=== PATIENT | female | born 2000 | race Caucasian/White ===

== ENCOUNTER 2020-07-02 11:55 | Emergency (ER) | payer BC ==
[~2020-07-02] VITALS: Ht 154.9 cm; Wt 64.3 kg
[2020-07-02 11:55] VITALS: BP 103/66
[2020-07-02] MEDS ORDERED: CETI10TA74 PO (12:27)
--- NOTE | 2020-07-02 12:28 | PHYS DOC ---
Past History Past Medical History: No Pertinent History Past Surgical History: No Surgical History Alcohol Use: None Adult General Chief Complaint Chief Complaint: SORE THROAT HPI HPI Patient is a healthy 19-year-old female who presents for sore throat. She was confirmed positive for Covid yesterday, is currently on day 6 of symptoms. 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 She is here today complaining of sore throat. She has been taking Tylenol only for this. She is able to swallow, is tolerating p.o. intake fine but admits having a dry scratchy throat with a nonproductive cough. Review of Systems Review of Systems Fourteen body systems of review of systems have been reviewed. See HPI for pertinent positives and negative responses, other [place] all other systems are negative, non-pertinent or non-contributory Current Medications Current Medications Current Medications Medications (Trade) Dose Ordered Sig/Esteban Start Time Stop Time Status Last Admin Dose Admin Cetirizine HCl (ZyrTEC ORAL SOLN) 10 mg DAILY 07/03/20 09:00 UNV Allergies Allergies Allergies Coded Allergies Type Severity Reaction Last Updated Verified No Known Drug Allergies 07/02/20 No Physical Exam Physical Exam Constitutional: Well developed, well nourished, no acute distress, non-toxic appearance. HENT: Normocephalic, atraumatic, bilateral external ears normal, oropharynx moist, no oral exudates, moderate postnasal drip present, moderately engorged nasal turbinates with clear rhinorrhea present, external nose normal. Eyes: PERRLA, EOMI, conjunctiva normal, no discharge. Neck: Normal range of motion, no tenderness, supple, no stridor. Cardiovascular: Heart rate regular, sinus rhythm, no murmurs rubs or gallops Lungs & Thorax: Bilateral breath sounds clear to auscultation Abdomen: Bowel sounds normal, soft, no tenderness, no masses, no pulsatile ma sses. Nonsurgical abdomen, no peritoneal signs Skin: Warm, dry, no erythema, no rash. Back: No tenderness, no CVA tenderness. Extremities: No tenderness, no cyanosis, no clubbing, ROM intact, no edema. Neurologic: Alert and oriented X 3, grossly normal motor & sensory function, no focal deficits noted. Psychologic: Affect normal, judgement normal, mood normal. Current Patient Data Vital Signs Vital Signs Date Time Temp Pulse Resp B/P (MAP) Pulse Ox O2 Delivery O2 Flow Rate FiO2 07/02/20 11:55 97.7 110 16 103/66 (78) 97 Room Air EKG EKG [] Radiology/Procedures Radiology/Procedures [] Heart Score Risk Factors: Risk Factors: DM, Current or recent (<one month) smoker, HTN, HLP, family history of CAD, obesity. Risk Scores: Risk Factors: DM, Current or recent (<one month) smoker, HTN, HLP, family history of CAD, obesity. Course & Med Decision Making Course & Med Decision Making ABCs unremarkable. Well-appearing patient tolerating p.o. intake. States she is concerned about swallowing a pill, there are no concerning findings on history or physical exam to support her inability to swallow pill. Nonetheless, she tolerated p.o. Zyrtec solution before departure I have no concern for impending airway compromise, no obvious signs or symptoms of oropharyngeal mass and/or abscess. No indication for further intervention and/or work-up in ER setting Patient has good family support. Will be returning home to self quarantine. She is tolerating p.o. intake prior to ER departure. Patient was advised and educated on importance of close outpatient follow-up when appropriate. I advised them to call primary care physician as soon as possible to discuss following up in outpatient setting after ER departure for repeat examination and evaluation. Strict return precautions were discussed at length with good understanding by patient who is able to restate plan and concerning signs or symptoms that should prompt immediate medical attention. All questions and concerns addressed prior to ER departure Dragon Disclaimer Dragon Disclaimer This electronic medical record was generated, in whole or in part, using a voice recognition dictation system. Departure Departure: Impression: Primary Impression: COVID-19 Disposition: 01 DC HOME SELF CARE/HOMELESS Condition: STABLE Referrals: NOHEMI ELISE MD (PCP) Patient Instructions: Viral Syndrome Additional Instructions: Short You were evaluated in the Emergency Department today for a cough. Your evaluation suggests a viral infection such as Coronavirus. It is important that you continue to self isolate and practice good hygiene at home. Please follow up with your primary care physician as discussed. Return to the Emergency Department if you experience worsening cough, fever, shortness of breath, recurrent vomiting, lethargy, or any other concerning symptoms. Thank you for choosing us for your care. Home Care Instructions for Patients with Mild Respiratory Infection Most people with respiratory infections like colds, the flu, and Coronavirus Disease (COVID-19) will have mild illness and can get better with appropriate home care and without the need to see a provider. People who are elderly, , or have a weak immune system, or other medical problem are at higher risk of more serious illness or complications. It is recommended that they carefully monitor their symptoms closely and seek medical care early if their symptoms get worse. Treatment There is no specific treatment for most viruses including those that that cause the common cold and those that cause COVID-19. Sometimes there is treatment for the viruses that cause influenza if given early. Antibiotics treat infections caused by bacteria, but they do not work against viruses.Most people recover on their own from these viruses, including COVID-19. Here are steps that you can take to help you get better: Rest Drink plenty of fluids Take [id number]-[id number] cold and flu medications to reduce fever and pain. Follow the instructions on the package, unless your doctor gave you instructions. Note that these medicines do not ``cure the illness and therefore do not stop you from spreading germs. Children should not be given medication that contains aspirin (acetylsalicylic acid) because it can cause a rare but serious illness called Yonas syndrome. Medicines without aspirin include acetaminophen (Tylenol) and ibuprofen (Advil, Motrin). Children younger than age 2 should not be given any rszc-zky-dntlion cold medications without first speaking with a doctor.Seeking Medical Care You should seek medical care if you are not getting better within a week, or if your symptoms get worse. If you are elderly, , have a weak immune system, or other medical problems, call your doctor right away. It is best to call ahead of time to discuss your symptoms, if possible. This may allow you to receive the advice you need by phone. By avoiding a visit to a healthcare facility, you protect yourself from getting a new infection and protect others from catching an infection from you. If you do visit a healthcare facility, put on a mask to protect other patients and staff. It is recommended that you seek medical care for serious symptoms, such as: People with potentially life-threatening symptoms should call 911. If possible, put on a facemask before emergency medical services arrive. PROTECTING OTHERS Follow the steps below to help prevent the disease from spreading to people in your home and community.Stay home when you are sick Stay home - do not go to work, school, or public areas. Stay home for at least 24 hours after your symptoms have gone away without the use of fever-reducing medicines. If you must leave home while you are sick, try to avoid using public transportation, ride-shares, and taxis. Wear a mask if possible. Separate yourself from other people and animals in your home Stay in a specific room and away from other people in your home as much as possible. Use a separate bathroom, if available. Try to stay at least 6 feet from others. Do not handle pets or other animals while you are sick. Cover your coughs and sneezes Cover your mouth and nose with a tissue when you cough or sneeze. Throw used tissues in a lined trash can; immediately wash your hands. Avoid sharing personal household items Do not share dishes, drinking glasses, cups, eating utensils, towels, or bedding with other people or pets in your home. Wash them thoroughly with soap and water after use. Clean your hands often Wash your hands often with soap and water for at least 20 seconds. If soap and water are not available, clean your hands with an alcohol-based hand assistant press operator that contains at least 60% alcohol, covering all surfaces of your hands and rubbing them together until they feel dry. Use soap and water if your hands are visibly dirty. Clean all ``high-touch surfaces every day High touch surfaces include counters, tabletops, doorknobs, bathroom fixtures, toilets, phones, keyboards, tablets, and bedside tables. Also, clean any surfaces that may have body fluids on them. Use a household cleaning spray or wipe, according to the product label instructions. COVID-19 (Novel Coronavirus) FAQs for Inquiring Patients What do you do if you are worried that you have been exposed to COVID-19 but are without any symptoms? If you develop symptoms that may indicate an infection, contact your physician. These include fever, cough, and shortness of breath. Testing is not available for asymptomatic individuals, regardless of travel history. To reduce the chance of getting sick use general infection prevention measures such as hand washing, covering your mouth and nose when you cough or sneeze and discarding any tissues carefully, and staying home when you are sick.Can exceptions be made for patients who are really worried and want to be tested? Presently testing is available through all local Department of Public Health and Centers for Disease Control and Prevention in addition to numerous Urgent Care facilities and Pharmacies. Only patients who meet the updated COVID-19 PUI definition may be tested. We do not control or set the PUI definition or evaluation criteria. We are unable to provide testing to patients who do not meet the strict criteria. Should patients cancel or postpone an upcoming trip? The decision about travel is personal and should be made in the context of a persons underlying health conditions, reason for travel and necessity of travel. Travel insurance generally does not cover cancellations due to concerns of infectious disease outbreaks. The Center for Disease Control has a section on travel notices. Situations are changing frequently and you should monitor the site for updates. Should situations change rapidly in a foreign country while they are traveling, you could be subject to quarantine or restrictions upon return to the [facility]. It is best to have a plan on how to return urgently if needed during a trip abroad. Because of how air circulates and is filtered on airplanes, most viruses do not spread easily on airplanes. CDC does not recommend use of facemasks during air travel.What other general precautions are advised? Patients should be instructed to: Avoid close contact with people who are sick. Avoid touching your eyes, nose and mouth. Stay home from work or school when they are sick. If you have a fever, you should remain home until 24 hours after fever resolves. Clean and disinfect frequently touched objects and surfaces using a regular household cleaning spray or wipe. Sneeze/cough into their elbow, not your hand. Practice frequent hand hygiene with soap and water (at least 20 seconds) or alcohol-based hand rub. Consider avoiding crowded places or mass gatherings, especially if you are immunocompromised or have chronic lung disease. There is no evidence to support transmission of COVID-19 from goods imported from [place]. Are there any special precautions that are recommended if I am ? There is not yet any information available about the susceptibility of women to COVID-19. As a general rule, women may be more susceptible to viral respiratory infections and at risk for more severe illness. The CDC guidance for COVID-19 and has answers to questions about transmission during delivery, as well as other situations. Should food, water, or medications be stockpiled? Should people telecommute? The CDC has excellent information on this. Please visit the CDCs guidance for getting your household ready for COVID-19. What should I do if I start feeling sick at work? And what should the workplace do for anyone exposed? Anyone who is sick with a fever and cough should stay home from work until at least 24 hours after resolution of fever, regardless of concerns for COVID-19. It is still influenza (flu) season and influenza remains far more common. Scripts Cetirizine Hcl (ZYRTEC) 10 Mg Tablet 1 TAB PO DAILY for Viral Syndrome, #30 TAB 2 Refills Prov: YOUNG RIDDLE DO 07/02/20 YOUNG RIDDLE DO Jul 02, 2020 12:28
[2020-07-02] MEDS ORDERED: CETIRIZINE 5 MG/5 ML ORAL SOLUTION. PO SCH (12:30)
== END 2020-07-02 12:38 | disposition home or self-care (01) ==
LOC: ER 11:55
DX: U07.1 COVID-19 (principal)
CPT/HCPCS: 87070; 87880; 99283

== ENCOUNTER 2020-07-25 21:15 | Emergency (ER) | payer BC ==
[~2020-07-25] VITALS: Ht 154.9 cm; Wt 64.3 kg
[~2020-07-25 21:15] MED LIST: CETI10TA74 PO
[2020-07-25 21:50] VITALS: BP 108/58
--- NOTE | 2020-07-25 22:10 | PHYS DOC ---
Past History Past Medical History: No Pertinent History (MARSHA GARDNER APRN) Past Surgical History: No Surgical History (MARSHA GARDNER APRN) Alcohol Use: None (MARSHA GARDNER APRN) General Adult EDM: Chief Complaint: SKIN RASH/ABSCESS HPI: HPI: Patient is a 19-year-old female who presents with a rash to the left side of her abdomen. Patient states that she was seen in urgent care and prescribed an antibiotic and acyclovir. Patient states that she is being seen for an increase in pain. Patient reports taking Motrin at home with little relief. Patient denies itching. Patient states rash is burning and tingling. (MARSHA GARDNER APRN) Review of Systems: Review of Systems: Constitutional: Denies fever or chills Eyes: Denies change in visual acuity HENT: Denies nasal congestion or sore throat Respiratory: Denies cough or shortness of breath Cardiovascular: Denies chest pain or edema GI: Denies abdominal pain, nausea, vomiting, bloody stools or diarrhea : Denies dysuria Musculoskeletal: Denies back pain or joint pain Integument: red, raised rash to left side of abdomen Neurologic: Denies headache, focal weakness or sensory changes Endocrine: Denies polyuria or polydipsia Lymphatic: Denies swollen glands Psychiatric: Denies depression or anxiety (MARSHA GARDNER APRN) Allergies: Allergies: Allergies Coded Allergies Type Severity Reaction Last Updated Verified No Known Drug Allergies 07/02/20 No (MARSHA GARDNER APRN) Physical Exam: PE: Constitutional: Well developed, well nourished, no acute distress, non-toxic appearance. [] HENT: Normocephalic, atraumatic, bilateral external ears normal, oropharynx moist, no oral exudates, nose normal. [] Eyes: PERRLA, EOMI, conjunctiva normal, no discharge. [] Neck: Normal range of motion, no tenderness, supple, no stridor. [] Cardiovascular:Heart rate regular rhythm, no murmur [] Lungs & Thorax: Bilateral breath sounds clear to auscultation [] Abdomen: Bowel sounds normal, soft, no tenderness, no masses, no pulsatile masses. [] Skin: Warm, dry, no erythema, no rash. [] Back: No tenderness, no CVA tenderness. [] Extremities: No tenderness, no cyanosis, no clubbing, ROM intact, no edema. [] Neurologic: Alert and oriented X 3, normal motor function, normal sensory function, no focal deficits noted. [] Psychologic: Affect normal, judgement normal, mood normal. [] (MARSHA GARDNER APRN) EKG: EKG: Sinus Tachycardia, HR BPM 102[] (MARSHA GARDNER APRN) Radiology/Procedures: Radiology/Procedures: [] (MARSHA GARDNER APRN) Heart Score: Risk Factors: Risk Factors: DM, Current or recent (<one month) smoker, HTN, HLP, family history of CAD, obesity. Risk Scores: Score 0 - 3: 2.5% MACE over next 6 weeks - Discharge Home Score 4 - 6: 20.3% MACE over next 6 weeks - Admit for Clinical Observation Score 7 - 10: 72.7% MACE over next 6 weeks - Early Invasive Strategies (MARSHA GARDNER APRN) Course & Med Decision Making: Course & Med Decision Making Pertinent Labs and Imaging studies reviewed. (See chart for details) [] 19-year-old female presents with rash to left side of her abdomen. Already in urgent care today and prescribed an antibiotic and acyclovir. Patient states that it hurts to sit and she has a burning and tingling pain. Will prescribe hydrocodone for home pain relief. Patient has a follow-up appointment on Saturday morning with her primary care physician. (MARSHA GARDNER APRN) [place] Disclaimer: Dragad Disclaimer: This electronic medical record was generated, in whole or in part, using a voice recognition dictation system. (MARSHA GARDNER APRN) Departure Departure: Impression: Primary Impression: Shingles (herpes zoster) polyneuropathy Disposition: 01 DC HOME SELF CARE/HOMELESS Condition: GOOD Referrals: NOHEMI ELISE MD (PCP) Patient Instructions: Shingles, [id number] Additional Instructions: Please follow-up with primary care on Saturday. Take antibiotics as prescribed. Take ibuprofen or Tylenol as needed for pain. You can take pain medication 4-6 hrs as needed. EMERGENCY DEPARTMENT GENERAL DISCHARGE INSTRUCTIONS Thank you for coming to [facility] (ED) today and trusting us with you care. We trust that you had a positivie experience in our Emergency Department. If you wish to speak to the department management, you may call the director at [phone]. YOUR FOLLOW UP INSTRUCTIONS ARE FOLLOWS: 1. Do you have a private Doctor? If you do not have a private doctor, please ask for a resource list of physicians or clinics that may be able to assist you with follow up care. 2. The Emergency Physician has interpreted your x-rays. The X-Ray specialist will also review them. If there is a change in the findings, you will be notified in 48 hours when at all possible. 3. A lab test or culture has been done, your results will be reviewed and you will be notified if you need a change in treatment. ADDITIONAL INSTRUCTIONS AND INFORMATION: 1. Your care today has been supervised by a physician who is specially trained in emergency care. Many problems require more than one evaluation for a complete diagnosis and treatment. We recommend that you schedule your follow up appointment as recommended to ensure complete treatment of you illness or injury. If you are unable to obtain follow up care and continue to have a problem, or if your condition worsens, we recommend that you return to the ED. 2. We are not able to safely determine your condition over the phone nor are we able to give sound medical advice over the phone. For these safety reasons, if you call for medical advice we will ask you to come to the ED for further evaluation. 3. If you have any questions regarding these discharge instructions please call the ED at [phone]. SAFETY INFORMATION: In the interest of safety, wellness, and injury prevention; we encourage you to wear your sealbelt, if you smoke; quite smoking, and we encourage family to use a protective helmet for bicycling and other sporting events that present an increased risk for head injury. IF YOUR SYMPTOMS WORSEN OR NEW SYMPTOMS DEVELOP, OR YOU HAVE CONCERNS ABOUT YOUR CONDITION; OR IF YOUR CONDITION WORSENS WHILE YOU ARE WAITING FOR YOUR FOLLOW UP APPOINTMENT; EITHER CONTACT YOUR PRIMARY CARE DOCTOR, THE PHYSICIAN WHOSE NAME AND NUMBER YOU WERE GIVEN, OR RETURN TO THE ED IMMEDIATELY. Scripts Hydrocodone Bit/Acetaminophen (HYDROCODONE-APAP 5-325 ) 1 Each Tablet 1-2 TAB PO PRN Q6-8HRS PRN for PAIN, #10 TAB 0 Refills Prov: MARSHA GARDNER COUNTER WEIGHER 07/25/20 Attending Signature Attending Signature I have reviewed the PA/CHARGE HAND's note and plan of care. I was available for consultation as needed during the patient's visit in the emergency department. I agree with the clinical impression, plan, and disposition. (ATIYA SHARPE DO) MARSHA GARDNER APRN Jul 25, 2020 22:09 ATIYA SHARPE DO Jul 26, 2020 05:54
[2020-07-25] MEDS ORDERED: HYDR-2155 PO (22:13)
[2020-07-25] MEDS ORDERED: HYDROcodone/APAP 5/325MG 1 TAB TABLET ONE (22:21)
[2020-07-25] MEDS ORDERED: HYDROcodone/APAP 5/325MG 1 TAB TABLET PO ONE (22:30)
== END 2020-07-25 22:24 | disposition home or self-care (01) ==
LOC: ER 21:15
DX: B02.23 Postherpetic polyneuropathy (principal)
CPT/HCPCS: 99283

== ENCOUNTER → 2020-11-15 | Emergency (ER) | payer BC ==
[~2020-11-15] MED LIST changes: +CEPH500C PO; +HYDR-2155 PO; +oxyCODONE/APAP 5/325 1 TAB TABLET PO ONE
--- NOTE | 2020-11-15 19:58 | PHYS DOC ---
Past History Past Medical History: No Pertinent History Past Surgical History: No Surgical History Alcohol Use: None Adult General Chief Complaint Chief Complaint: EYE PROBLEMS HPI HPI Patient is a 19-year-old female who presents with a chief complaint of right- sided hordeolum. States has been there for couple days, is uncomfortable, 3 out of 10. Denies any headache, fevers, changes in vision, conjunctivitis, nausea, vomiting. Denies any recent traumas, known ill contacts or illnesses. Review of Systems Review of Systems Constitutional: Denies fever or chills [] Eyes: Denies change in visual acuity, redness, or eye pain [] HENT: Denies nasal congestion or sore throat [] Respiratory: Denies cough or shortness of breath [] Cardiovascular: No additional information not addressed in HPI [] GI: Denies abdominal pain, nausea, vomiting, bloody stools or diarrhea [] : Denies dysuria or hematuria [] Musculoskeletal: Denies back pain or joint pain [] Integument: Denies rash or skin lesions [] Neurologic: Denies headache, focal weakness or sensory changes [] Endocrine: Denies polyuria or polydipsia [] All other systems were reviewed and found to be within normal limits, except as documented in this note. Allergies Allergies Allergies Coded Allergies Type Severity Reaction Last Updated Verified No Known Drug Allergies 07/02/20 No Physical Exam Physical Exam Constitutional: Well developed, well nourished, no acute distress, non-toxic appearance. [] HENT: Normocephalic, atraumatic, bilateral external ears normal, oropharynx moist, no oral exudates, nose normal. [] Eyes: PERRLA, EOMI, conjunctiva normal, no discharge, right-sided lower medial hordeolum. [] Neck: Normal range of motion, no tenderness, supple, no stridor. [] Cardiovascular:Heart rate regular rhythm, no murmur [] Neurologic: Alert and oriented X 3, normal motor function, normal sensory function, no focal deficits noted. [] Psychologic: Affect normal, judgement normal, mood normal. [] EKG EKG [] Radiology/Procedures Radiology/Procedures [] Heart Score C/O Chest Pain: No Risk Factors: Risk Factors: DM, Current or recent (<one month) smoker, HTN, HLP, family history of CAD, obesity. Risk Scores: Risk Factors: DM, Current or recent (<one month) smoker, HTN, HLP, family history of CAD, obesity. Course & Med Decision Making Course & Med Decision Making Patient is a 19-year-old female who presents with a right-sided hordeolum for 2 days Vital signs not concerning. Physical exam noted above. Patient given pain medication in the ED. Described management of 40-year-old at home. Started on Keflex in the ED. Advised to follow-up first thing in the morning with primary care physician to set up a follow-up visit. Gave strict return precautions to the ED. Patient grateful, verbalized understanding agree with plan of discharge [] Dragon Disclaimer Dragon Disclaimer This electronic medical record was generated, in whole or in part, using a voice recognition dictation system. Departure Departure: Disposition: HOME / SELF CARE / HOMELESS Condition: GOOD Referrals: NOHEMI ELISE MD (PCP) Patient Instructions: Sty Additional Instructions: Please read all of the attached information. As discussed you can use Tylenol and ibuprofen as needed at home. As discussed, please use hot compresses several times daily to keep your eye clean and for management of your stye. Please take your antibiotics as prescribed. Please call your primary care physician first thing in the morning to update on ED visit and set up a follow- up. Please come back to the ED with new or concerning symptoms. Scripts Cephalexin (CEPHALEXIN) 500 Mg Capsule 1 CAP PO BID for STY for 7 Days, #14 CAP Prov: ROSA PRUETT MD 11/16/20 ROSA PRUETT MD Nov 15, 2020 19:58
== END ==
LOC: ER 19:28
DX: H00.012 Hordeolum externum right lower eyelid (principal)
CPT/HCPCS: 99283

== ENCOUNTER 2021-01-12 01:02 | Emergency (ER) | payer BC, OTHER ==
[~2021-01-12] VITALS: Ht 157.5 cm; Wt 68.2 kg
[~2021-01-12 01:02] MED LIST changes: -oxyCODONE/APAP 5/325 1 TAB TABLET PO ONE
--- NOTE | 2021-01-12 01:15 | PHYS DOC ---
Past History Past Medical History: No Pertinent History Past Surgical History: No Surgical History Alcohol Use: None Adult General Chief Complaint Chief Complaint: ABSCESS HPI HPI Patient is a 20-year old female G2, P1 at 25 weeks of gestational age who presents with pain, swelling, redness left lateral abdominal wall above the hip since 2 days ago. Patient denies any insect bite or trauma to the site. Does report mother and son both has skin cellulitis. She does report pain and swelling along with redness worsened today. Denies any fever, chills, nausea or vomiting. Denies using any analgesics or OTC medications. Review of Systems Review of Systems Constitutional: Denies fever or chills [] Eyes: Denies change in visual acuity, redness, or eye pain [] HENT: Denies nasal congestion or sore throat [] Respiratory: Denies cough or shortness of breath [] Cardiovascular: No additional information not addressed in HPI [] GI: Denies abdominal pain, nausea, vomiting, bloody stools or diarrhea [] : Denies dysuria or hematuria [] Musculoskeletal: Denies back pain or joint pain [] Integument: Reports pain, swelling, redness left lateral abdominal wall above the hip Neurologic: Denies headache, focal weakness or sensory changes [] Endocrine: Denies polyuria or polydipsia [] All other systems were reviewed and found to be within normal limits, except as documented in this note. Allergies Allergies Allergies Coded Allergies Type Severity Reaction Last Updated Verified No Known Drug Allergies 07/02/20 No Physical Exam Physical Exam Constitutional: Well developed, well nourished, no acute distress, non-toxic ap pearance. [] HENT: Normocephalic, atraumatic, bilateral external ears normal, oropharynx moist, no oral exudates, nose normal. [] Eyes: PERRLA, EOMI, conjunctiva normal, no discharge. [] Neck: Normal range of motion, no tenderness, supple, no stridor. [] Cardiovascular:Heart rate regular rhythm, no murmur [] Lungs & Thorax: Bilateral breath sounds clear to auscultation [] Abdomen: Bowel sounds normal, soft, no tenderness, no masses, no pulsatile masses. [] Skin: Patient does have area of erythema, tenderness upon palpation, a very small area of possible abscess formation and minimally warm to touch at the left lateral lower abdomen above the hip area. This was measured about 2.5 cm x 1.5 cm in diameter. No obvious open wound. No drainage. Back: No tenderness, no CVA tenderness. [] Extremities: No tenderness, no cyanosis, no clubbing, ROM intact, no edema. [] Neurologic: Alert and oriented X 3, normal motor function, normal sensory function, no focal deficits noted. [] Psychologic: Affect normal, judgement normal, mood normal. [] EKG EKG [] Radiology/Procedures Radiology/Procedures [] Heart Score C/O Chest Pain: No Risk Factors: Risk Factors: DM, Current or recent (<one month) smoker, HTN, HLP, family history of CAD, obesity. Risk Scores: Risk Factors: DM, Current or recent (<one month) smoker, HTN, HLP, family history of CAD, obesity. Course & Med Decision Making Course & Med Decision Making Pertinent Labs and Imaging studies reviewed. (See chart for details) [] Dragon Disclaimer Dragon Disclaimer This electronic medical record was generated, in whole or in part, using a voice recognition dictation system. Departure Departure: Impression: Primary Impression: Cellulitis, abdominal wall Disposition: HOME / SELF CARE / HOMELESS Referrals: NOHEMI ELISE MD (PCP) Additional Instructions: Please keep the cellulitic area clean and dry. Your skin is not broken. This is likely early abscess formation. Take the antibiotic as prescribed. Please see primary care provider in 1 to 2 days. If not improved, you may need lanceting the area. Scripts Cephalexin (CEPHALEXIN) 500 Mg Capsule 1 CAP PO TID for cellulitis for 7 Days, #21 CAP Prov: VICKIE WANG MD 01/12/21 VICKIE WANG MD Jan 12, 2021 01:15
[2021-01-12] MEDS ORDERED: CEPH500C PO (01:44)
[2021-01-12] MEDS ORDERED: cefTRIAXone IM 1 GM VIAL IM ONE (02:00)
[2021-01-12 02:10] VITALS: BP 99/56
== END 2021-01-12 02:10 | disposition home or self-care (01) ==
LOC: ER 01:02
DX: O26.892 Other specified pregnancy related conditions, second trimester (principal); L03.311 Cellulitis of abdominal wall; Z3A.25 25 weeks gestation of pregnancy
CPT/HCPCS: 96372; 99283; J0696

== ENCOUNTER 2021-01-13 00:38 | Emergency (ER) | payer BC, OTHER ==
[~2021-01-13] VITALS: Ht 157.5 cm; Wt 68.5 kg
--- NOTE | 2021-01-13 00:48 | PHYS DOC ---
Past History Past Medical History: No Pertinent History Past Surgical History: No Surgical History Alcohol Use: None Adult General HPI HPI Very pleasant 20-year-old female with G 2P1 presents to the emergency department with complaint of subjective sensation of low-lying interest. She was concerned. She came to the ER for evaluation. Her subjective sensation of low- lying area started today. Patient denies any trauma, recent sexual intercourse, or any abnormal position. Patient denies vaginal bleeding, amniotic fluid leakage, or any urinary symptoms. She does report normal movement. She states that this is different than her from previous . She was seen in the emergency department by me for cellulitis left lower lateral abdomen. This was also evaluated and she is improving from that. She also had several bug bites right shoulder which are also appears to be improved. Patient denies any headache, lightheadedness, dizziness, nausea, vomiting, bowel or bladder problems. Review of Systems Review of Systems All other systems were reviewed and found to be within normal limits, except as documented in this note. Allergies Allergies Allergies Coded Allergies Type Severity Reaction Last Updated Verified No Known Drug Allergies 07/02/20 No Physical Exam Physical Exam Constitutional: Well developed, well nourished, no acute distress, non-toxic appearance. [] HENT: Normocephalic, atraumatic, bilateral external ears normal, oropharynx moist, no oral exudates, nose normal. [] Eyes: PERRLA, EOMI, conjunctiva normal, no discharge. [] Neck: Normal range of motion, no tenderness, supple, no stridor. [] Cardiovascular:Heart rate regular rhythm, no murmur [] Lungs & Thorax: Bilateral breath sounds clear to auscultation [] Abdomen: Gravid abdomen. Bowel sounds normal, soft, no tenderness, no masses, no pulsatile masses. [] Skin: Cellulitic changes left lower lateral abdomen wall improving. Several insect bites also improving right upper shoulder. Back: No tenderness, no CVA tenderness. [] Extremities: No tenderness, no cyanosis, no clubbing, ROM intact, no edema. [] EKG EKG [] Radiology/Procedures Radiology/Procedures [] Heart Score C/O Chest Pain: N/A Risk Factors: Risk Factors: DM, Current or recent (<one month) smoker, HTN, HLP, family history of CAD, obesity. Risk Scores: Risk Factors: DM, Current or recent (<one month) smoker, HTN, HLP, family history of CAD, obesity. Course & Med Decision Making Course & Med Decision Making Patient has subjective sensation of low-lying uterus. Patient was offered pelvic exam as well as ultrasound studies. She declined. She would prefer female physician. Discharge instructions the patient: Please take it easy today. Please increase drinking plenty of fluids. Please discuss with your OB physician Dr. Marte about your subjective sensation of low lying uterus. Your heart rate 150 in the ER. You are offered diagnostic studies as well as pelvic exam. You have declined. You prefer to be checked out by a female physician. I respect that. Please have your OB physician to check your pelvis for possible low-lying uterus. You do not have any vaginal bleeding, vaginal fluid leakage, or any recent sexual intercourse. You feel movement as normal. Therefore, at this junction I feel comfortable that your intrauterine is progressing appropriately. This is reassuring. Dragon Disclaimer Dragon Disclaimer This electronic medical record was generated, in whole or in part, using a voice recognition dictation system. Departure Departure: Impression: Primary Impression: Intrauterine Additional Impression: Pelvic pressure in Disposition: HOME / SELF CARE / HOMELESS Condition: GOOD Referrals: NOHEMI ELISE MD (PCP) Additional Instructions: Please take it easy today. Please increase drinking plenty of fluids. Please discuss with your OB physician Dr. Marte about your subjective sensation of low lying uterus. Your heart rate 150 in the ER. You are offered diagnostic studies as well as pelvic exam. You have declined. You prefer to be checked out by a female physician. I respect that. Please have your OB physician to check your pelvis for possible low-lying uterus. You do not have any vaginal bleeding, vaginal fluid leakage, or any recent sexual intercourse. You feel movement as normal. Therefore, at this junction I feel comfortable that your intrauterine is progressing appropriately. This is reassuring. Problem Qualifiers VICKIE WANG MD Jan 13, 2021 00:48
[2021-01-13 00:53] VITALS: BP 107/71
== END 2021-01-13 01:20 | disposition home or self-care (01) ==
LOC: ER 00:38
DX: O26.892 Other specified pregnancy related conditions, second trimester (principal); R10.2 Pelvic and perineal pain; Z3A.25 25 weeks gestation of pregnancy
CPT/HCPCS: 99284-25

== ENCOUNTER 2021-04-22 18:28 | Emergency (ER) | payer BC, OTHER ==
[~2021-04-22] VITALS: Ht 157.5 cm; Wt 67.1 kg
--- NOTE | 2021-04-22 18:39 | PHYS DOC ---
Past History Past Medical History: No Pertinent History Past Surgical History: No Surgical History Alcohol Use: None General Adult EDM: Chief Complaint: CONSTIPATION HPI: HPI: ".. I just had my 2nd bady.. on Sat. (04/15).. and I now constipated.. I tried some over the counter stool softner's.. but I can't push because C section janeth. ... I still taking my prenatals.. Baby is doing fine.. she is 7lb and 5.6 oz...>" Patient is a 20 year old female who presents with above hx and complaints of constipation. Patient states no problems with delivery. Was a . Patient has developed constipation since the delivery and has not had adequate stool. Patient is passing gas. No history immunosuppression. No history of travel. No history of ill contacts. Shee is breast-feeding. Has continue her vitamins. Pt. normally follows with Dr. Elise. Review of Systems: Review of Systems: Constitutional: Denies fever or chills Eyes: Denies change in visual acuity HENT: Denies nasal congestion or sore throat Respiratory: Denies cough or shortness of breath Cardiovascular: Denies chest pain or edema GI: Complains of constipation abdominal pain,. Denies nausea, vomiting, bloody stools or diarrhea : Denies dysuria Musculoskeletal: Denies back pain or joint pain Integument: Denies rash Neurologic: Denies headache, focal weakness or sensory changes Endocrine: Denies polyuria or polydipsia Lymphatic: Denies swollen glands Psychiatric: Denies depression or anxiety Family History: Family History: Noncontributory to presentation Current Medications: Current Meds: See nursing for home meds Allergies: Allergies: Allergies Coded Allergies Type Severity Reaction Last Updated Verified No Known Drug Allergies 01/13/21 No Physical Exam: PE: Constitutional: Moderate acute distress, non-toxic appearance. [] HENT: Normocephalic, atraumatic, bilateral external ears normal, oropharynx moist, no oral exudates, nose normal. [] Eyes: PERRLA, EOMI, conjunctiva normal, no discharge. [] Neck: Normal range of motion, no tenderness, supple, no stridor. [] Cardiovascular:Heart rate regular rhythm, no murmur [] Lungs & Thorax: Bilateral breath sounds equal apex auscultation [] Abdomen: Bowel sounds normal, soft, stable line tenderness, no obvious signs of infection of suture line, distended abdomen, no masses, no pulsatile masses. [] Skin: Warm, dry, no erythema, no rash. Tattoos Back: No tenderness, no CVA tenderness. [] Extremities: No tenderness, no cyanosis, no clubbing, ROM intact, trace ankle edema. [] Neurologic: Alert and oriented X 3, normal motor function, normal sensory function, no focal deficits noted. DTRs are +2 patella Psychologic: Affect anxious judgement normal, mood normal. [] EKG: EKG: [] Radiology/Procedures: Radiology/Procedures: [] Heart Score: C/O Chest Pain: N/A Risk Factors: Risk Factors: DM, Current or recent (<one month) smoker, HTN, HLP, family history of CAD, obesity. Risk Scores: Score 0 - 3: 2.5% MACE over next 6 weeks - Discharge Home Score 4 - 6: 20.3% MACE over next 6 weeks - Admit for Clinical Observation Score 7 - 10: 72.7% MACE over next 6 weeks - Early Invasive Strategies Course & Med Decision Making: Course & Med Decision Making Pertinent Labs and Imaging studies reviewed. (See chart for details) Patient remain on a clear fluid diet only for the next 48 hours. No solids. No milk products. Push fluids. May repeat dose of milk of mag 30 cc in the morning if no adequate stool by morning. Follow-up primary care. Return if any concerns. Impression; 1. Reports Constipation since delivery 04/15 [] Dragon Disclaimer: Dragon Disclaimer: This electronic medical record was generated, in whole or in part, using a voice recognition dictation system. Departure Departure: Referrals: NOHEMI ELISE MD (PCP) Meghann Disclaimer This chart was dictated in whole or in part using Voice Recognition software in a busy, high-work load, and often noisy Emergency Department environment. It may contain unintended and wholly unrecognized errors or omissions. Dragon Disclaimer This chart was dictated in whole or in part using Voice Recognition software in a busy, high-work load, and often noisy Emergency Department environment. It may contain unintended and wholly unrecognized errors or omissions. HERMILA JORDAN MD Apr 22, 2021 18:39
[2021-04-22 18:40] VITALS: BP 109/63
[2021-04-22] MEDS ORDERED: MAGNESIUM HYDROXIDE 2,400 MG/30 ML ORAL.SUSP. PO ONE (19:00)
[2021-04-22] MEDS ORDERED: BISACODYL 10 MG SUPP.RECT PR ONE (19:00)
== END 2021-04-22 19:33 | disposition home or self-care (01) ==
LOC: ER 18:28
DX: O90.89 Other complications of the puerperium, not elsewhere classified (principal); K59.00 Constipation, unspecified; R10.9 Unspecified abdominal pain; Z98.890 Other specified postprocedural states
CPT/HCPCS: 99283